=== PATIENT | female | born 1975 | race Caucasian/White ===

== ENCOUNTER 2019-03-18 20:25 | Emergency (ER) | payer OTHER ==
[2019-03-18 20:31] VITALS: BP 144/86
== END 2019-03-18 22:34 | disposition left against medical advice (07) ==
LOC: ED 20:25
DX: O03.9 Complete or unspecified spontaneous abortion without complication (principal); Z53.21 Procedure and treatment not carried out due to patient leaving prior to being seen by health care provider

== ENCOUNTER → 2019-03-19 15:54 | Day surgery (SDC) | payer OTHER ==
[~2019-03-19 15:54] MED LIST: Acetaminophen TAB* 325 MG PO PRN; DOXYcycline IV 200 MG in NS 250 mL *Pre-Op OBGYN IVPB ONE; Dexamethasone IV* 4 MG/ML 1 ML (4 MG) IV SLOW PU ONE; Dexamethasone IV* 4 MG/ML 1 ML (4 MG) ONE; DiMENhydriNATE IV* 50 MG/ML VIAL IV PUSH PRN; Famotidine IV* 10 MG/ML 2 ML (20 mg) IV SLOW PU ONE; Famotidine IV* 10 MG/ML 2 ML (20 mg) ONE; HYDROcodone/ACETAMIN 5-325 MG* 1 TAB PO PRN; KETAMINE HCL* 50 MG/ML 10 ML VIAL ONE; Ketorolac INJ* 30 MG/ML 1 ML VIAL IV PRN; Lidocaine 1% INJ* 10 MG/ML 30 ML SDV ONE; Lidocaine 2% PF * 5 ML VIAL ONE; Midazolam* 1 MG/ML 5 ML VIAL (5 MG) ONE; Naloxone* 0.4 MG/ML 1 ML VIAL IV PRN; Ondansetron INJ* 2 MG/ML VIAL ONE; Propofol* 500 MG/50 ML BTL ONE; fentaNYL* 50 MCG/ML 2 ML VIAL (100 MCG VIAL) IV PRN; fentaNYL* 50 MCG/ML 2 ML VIAL (100 MCG VIAL) ONE; oxyCODONE/Acetamin 5/325 MG* TAB PO PRN
[2019-03-19 20:12] VITALS: BP 116/83
--- NOTE | 2019-03-20 02:16 | OP ---
DATE OF OPERATION: 03/19/19 - [facility] DATE OF : 75 SURGEON: Wicho Jha MD ANESTHESIA: Monitored anesthesia care. PRE-OP DIAGNOSIS: An incomplete after a failed medically-induced termination of in the first trimester. POST-OP DIAGNOSIS: An incomplete after a failed medically-induced termination of in the first trimester. OPERATIVE PROCEDURE: Dilation and evacuation. ESTIMATED BLOOD LOSS: None. SPECIMEN SENT TO PATHOLOGY: Endometrial curettings. FLUIDS: She received 500 cc of IV crystalloid fluid. URINE OUTPUT: 220 cc of clear urine. FINDINGS: Exam under anesthesia revealed normal external genitalia. Cervix was noted to be about 1 cm dilated. The uterus was sounded to 9 cm and was in anteverted position and moderate amounts of products of conception were removed with the procedure and sent to Pathology. DESCRIPTION OF PROCEDURE: The patient was taken to the operating room where she was identified. She was placed on the operating room table where the patient was sedated and monitored anesthesia care obtained. She was then placed in a dorsal lithotomy position, prepped and draped in normal sterile fashion. Attention was then brought onto the patient's perineum where the bladder was catheterized with a straight catheter and drained of clear urine, after which a weighted speculum was then inserted into the patient's vagina. The cervix was identified, grasped with a single-tooth tenaculum, and was noted to be about a centimeter dilated with small amount of blood oozing out of the cervix. I then proceeded to sound the cervix and was noted to be 9 cm and in an anteverted position. I then introduced a 10-curved suction curette through the cervix up to the fundus of the uterus. A suction was then applied and a suction curettage was performed. After the suction curettage was deemed to have completed emptying the uterus, a sharp curettage was done to confirm this. Once the confirmation of the uterine cavity emptying was noted, I removed all the instruments from the patient's vagina. Sponge, lap, and needle counts were correct x2. The specimen was sent to pathology. The patient was taken to recovery room in stable condition. [id number]/[facility] #: [id number] MTDD
== END | disposition home or self-care (01) ==
LOC: OR 15:54
PROVIDERS: ATTEND Obstetrics & Gynecology
DX: O03.39 Incomplete spontaneous abortion with other complications (principal); O07.1 Delayed or excessive hemorrhage following failed attempted termination of pregnancy; Z3A.09 9 weeks gestation of pregnancy
CPT/HCPCS: 88305; J1100; J2250; J2405; J2704; J3010

== ENCOUNTER 2019-07-16 16:29 | Emergency (ER) | payer OTHER ==
[2019-07-16 17:29] LABS: ABS Eosinophils 0.1 10^3/ul (0-0.6); ABS Lymphocytes 1.8 10^3/ul (1.0-4.8); ABS Monocytes 0.5 10^3/ul (0-0.8); ABS Neutrophils 4.5 10^3/ul (1.5-7.7); Eosinophil % 1.8 %; Hematocrit 37 % (35-47); Hemoglobin 12.9 g/dL (12.0-16.0); Lymphocyte % 26.4 %; Mean Corpuscular HGB Conc 35 g/dL (31-36); Mean Corpuscular Hemoglobin 28 pg (27-31); Mean Corpuscular Volume 80 fL (80-97); Mean Platelet Volume 7.6 fL (7.4-10.4); Platelet Count 335 10^3/uL (150-450); Red Blood Count 4.61 10^6 /uL (3.70-4.87); Red Cell Distribution Width 22 % (10-15); White Blood Count 6.9 10^3/uL (3.5-10.8)
[2019-07-16 17:48] LABS: Albumin 4.7 g/dL (3.2-5.2); Albumin/Globulin Ratio 1.5 (1-3); BUN/Creatinine Ratio 15.1 (8-20); Calcium 9.6 mg/dL (8.6-10.3); EGFR African American 105.3 (>60); Globulin 3.1 g/dL (2-4); Potassium 3.3 mmol/L (3.5-5.0); Total Bilirubin 0.4 mg/dL (0.2-1.0); Total Protein 7.8 g/dL (6.4-8.9)
--- NOTE | 2019-07-16 18:58 | ED ---
GI/ HPI - HPI Summary HPI Summary: Patient with history of 10 weeks complains of new onset vaginal bleeding starting at 1 AM this morning, increasing to heavy meeting at noon. Patient evaluated by LEAD TECHNICIAN at 3 PM, diagnosed with suspected miscarriage due to open cervix. Sent to the ED for lab work and evaluation. Patient also complains of lightheadedness. Patient states she has been using 1 large pad per hour, passing some large clots. Intermittent lower abdominal cramping. Denies fever, cough, sore throat, CP, SOB, N/3/D, change in urine, change in BM. History of incomplete miscarriage 3 with subsequent D and E 3. LEAD TECHNICIAN is Dr. Jha. - History of Current Complaint Chief Complaint: EDVaginalBleeding Time Seen by Provider: 07/16/19 18:52 Stated Complaint: 10 WEEKS PREG BLEEDING Hx Obtained From: Patient, Family/Salon Customer Experience Specialist Onset/Duration: Started Hours Ago Timing: Intermittent, Lasting Hours Severity: Moderate Current Severity: Moderate Vaginal Bleeding Description: Brownish-Red Pain Intensity: 5 Location of Pain: RLQ, LLQ, Suprapubic Pain Characteristics: Cramping Associated Signs and Symptoms: Positive: Lightheadedness Aggravating Factor(s): Nothing Alleviating Factor(s): Nothing - Allergy/Home Medications Allergies/Adverse Reactions: Allergies Allergy/AdvReac Type Severity Reaction Status Date / Time No Known Allergies Allergy Verified 03/19/19 16:50 Home Medications: Home Medications Pnv No.95/Ferrous Fum/Folic AC [ and Iron] 1 tab PO DAILY 10/09/12 [ History Confirmed 07/16/19] PMH/Surg Hx/FS Hx/Imm Hx Endocrine/Hematology History: Reports: Hx Thyroid Disease - BENIGN NODULES, WATCHING Denies: Hx Diabetes Cardiovascular History: Denies: Hx Pacemaker/ICD Respiratory History: Denies: Hx Chronic Obstructive Pulmonary Disease (COPD) History: Denies: Hx Dialysis Sensory History: Denies: Hx Contacts or Glasses, Hx Hearing Aid Opthamlomology History: Denies: Hx Contacts or Glasses EENT History: Denies: Hx Deafness Neurological History: Denies: Hx Dementia Psychiatric History: Denies: Hx Panic Disorder - Surgical History Surgery Procedure, Year, and Place: 07/2013 D&C, [facility]; Hx Anesthesia Reactions: No Infectious Disease History: No Infectious Disease History: Denies: Traveled Outside the [place] in Last 30 Days - Family History Known Family History: Positive: Non-Contributory - Social History Alcohol Use: Rare Substance Use Type: Reports: None Smoking Status (MU): Never Smoked Tobacco Have You Smoked in the Last Year: No Review of Systems Constitutional: Negative Eyes: Negative ENT: Negative Cardiovascular: Negative Respiratory: Negative Positive: Abdominal Pain Genitourinary: Negative Musculoskeletal: Negative Skin: Negative Neurological/Mental Status: Negative Psychological: Normal All Other Systems Reviewed And Are Negative: Yes Physical Exam Triage Information Reviewed: Yes Vital Signs On Initial Exam: Initial Vitals Temp Pulse Resp BP Pulse Ox 98.7 F 95 18 136/108 100 07/16/19 16:32 07/16/19 16:32 07/16/19 16:32 07/16/19 16:32 07/16/19 16:32 Vital Signs Reviewed: Yes Appearance: Positive: Well-Appearing Skin: Positive: Warm Head/Face: Positive: Normal Head/Face Inspection Eyes: Positive: Normal Neck: Positive: Supple Respiratory/Lung Sounds: Positive: Clear to Auscultation Cardiovascular: Positive: Normal Abdomen Description: Positive: Nontender Musculoskeletal: Positive: Normal Neurological: Positive: Normal Psychiatric: Positive: Normal AVPU Assessment: Alert - [place] Coma Scale Best Eye Response: 4 - Spontaneous Best Motor Response: 6 - Obeys Commands Best Verbal Response: 5 - Oriented Coma Scale Total: 15 Procedures - Sedation Patient Received Moderate/Deep Sedation with Procedure: No Diagnostics - Vital Signs Vital Signs Temp Pulse Resp BP Pulse Ox 07/16/19 18:44 90 90/68 07/16/19 18:06 98.1 F 101 18 121/81 100 07/16/19 17:07 95 18 119/79 97 07/16/19 16:32 98.7 F 95 18 136/108 100 - Laboratory Lab Results: Lab Results 07/16/19 07/16/19 07/16/19 Range/Units 17:20 17:20 17:20 WBC 6.9 (3.5-10.8) 10^3/uL RBC 4.61 (3.70-4.87) 10^6 /uL Hgb 12.9 (12.0-16.0) g/dL Hct 37 (35-47) % MCV 80 (80-97) fL MCH 28 (27-31) pg MCHC 35 (31-36) g/dL RDW 22 H (10-15) % Plt Count 335 (150-450) 10^3/uL MPV 7.6 (7.4-10.4) fL Neut % (Auto) 64.2 % Lymph % (Auto) 26.4 % Peach % (Auto) 7.2 % Eos % (Auto) 1.8 % Baso % (Auto) 0.4 % Absolute Neuts (auto) 4.5 (1.5-7.7) 10^3/ul Absolute Lymphs (auto) 1.8 (1.0-4.8) 10^3/ul Absolute Monos (auto) 0.5 (0-0.8) 10^3/ul Absolute Eos (auto) 0.1 (0-0.6) 10^3/ul Absolute Basos (auto) 0.0 (0-0.2) 10^3/ul Absolute Nucleated RBC 0.0 10^3/ul Nucleated RBC % 0.0 Sodium 134 L (135-145) mmol/L Potassium 3.3 L (3.5-5.0) mmol/L Chloride 102 (101-111) mmol/L Carbon Dioxide 23 (22-32) mmol/L Anion Gap 9 (2-11) mmol/L BUN 11 (6-24) mg/dL Creatinine 0.73 (0.51-0.95) mg/dL Est GFR ( Amer) 105.3 (>60) Est GFR (Non-Af Amer) 87.0 (>60) BUN/Creatinine Ratio 15.1 (8-20) Glucose 93 (70-100) mg/dL Calcium 9.6 (8.6-10.3) mg/dL Total Bilirubin 0.40 (0.2-1.0) mg/dL AST 31 (13-39) U/L ALT 33 (7-52) U/L Alkaline Phosphatase 42 (34-104) U/L Total Protein 7.8 (6.4-8.9) g/dL Albumin 4.7 (3.2-5.2) g/dL Globulin 3.1 (2-4) g/dL Albumin/Globulin Ratio 1.5 (1-3) Beta HCG, Quant 3709.00 mIU/mL Blood Type O Positive Antibody Screen Negative Result Diagrams: 07/16/19 21:00 07/16/19 17:20 Lab Statement: Any lab studies that have been ordered have been reviewed, and results considered in the medical decision making process. GIGU Course/Dx - Course Course Of Treatment: Patient with history of 10 weeks complains of new onset vaginal bleeding starting at 1 AM this morning, increasing to heavy meeting at noon. Patient evaluated by LEAD TECHNICIAN at 3 PM, diagnosed with suspected miscarriage due to open cervix. Sent to the ED for lab work and evaluation. Patient also complains of lightheadedness. Patient states she has been using 1 large pad per hour, passing some large clots. Intermittent lower abdominal cramping. Denies fever, cough, sore throat, CP, SOB, N/3/D, change in urine, change in BM. History of incomplete miscarriage 3 with subsequent D and E 3. LEAD TECHNICIAN is Dr. Jha. Intermittently mildly tachycardic. Vital signs otherwise within normal limits. Labs unremarkable. Hemoglobin 12.9. Potassium 3.3. HCG 3709. Transvaginal ultrasound negative for IUP, negative for ectopic, positive for left ovarian cyst and small fibroid. Patient also evaluated by OB Dr. Lo with recommendation for discharge and misoprostol. - Diagnoses Provider Diagnoses: Incomplete miscarriage Discharge ED - Sign-Out/Discharge Documenting (check all that apply): Patient Departure - Discharge Plan Condition: Stable Disposition: HOME Patient Education Materials: Miscarriage (ED) Referrals: Tavo Montero MD [Primary Care Provider] - Additional Instructions: Follow up with LEAD TECHNICIAN Dr Jha. Return to the ED for any new or worsening symptoms. - Billing Disposition and Condition Condition: STABLE Disposition: Home
[2019-07-16] MEDS ORDERED: NS 0.9% 1000 ML** 1,000 ML IV ONE (19:38)
[2019-07-16] MEDS ORDERED: Misoprostol TAB* 200 MCG PO ONE (20:16)
[2019-07-16 21:43] LABS: Hematocrit 31 % (35-47); Hemoglobin 10.5 g/dL (12.0-16.0); Mean Corpuscular HGB Conc 34 g/dL (31-36); Mean Corpuscular Hemoglobin 27 pg (27-31); Mean Corpuscular Volume 81 fL (80-97); Mean Platelet Volume 8.1 fL (7.4-10.4); Platelet Count 263 10^3/uL (150-450); Red Blood Count 3.87 10^6 /uL (3.70-4.87); Red Cell Distribution Width 22 % (10-15); White Blood Count 9.9 10^3/uL (3.5-10.8)
[2019-07-16 22:24] LABS: ABS Lymphocytes 1.1 10^3/ul (1.0-4.8); ABS Monocytes 0.3 10^3/ul (0-0.8); ABS Neutrophils 8.5 10^3/ul (1.5-7.7); Eosinophil % 0.5 %
--- NOTE | 2019-07-16 22:33 | PN ---
Progress Note - Progress Note Date of Service: 07/16/19 - OBGYN CONSULT Note: OBGYN CONSULT Requested by ED PA for vaginal bleeding in the context of miscarriage S: Pt is a 43 y/o at 10w1d gestation by LMP who presented to the ED with heavy vaginal bleeding that began this AM and steadily increased throughout the day. She has a history of 2 term 's and two past miscarriages which both required surgical management with D&C. On arrival to the ED the appropriate labs were collected and a CYBER DEF[employer] INCIDENT RESPONDER TVUSN was performed. H/H and vitals were normal. Quant Hcg was ~3700. [employer] INCIDENT RESPONDER TVUSN exhibited a 11mm endometrial stripe and a suspected hemorrhagic corpus luteum. OBGYN notified to assess pt's bleeding and stability for discharge. Gen: nad, aaox3 CV: RRR Pulm: non-labored respirations Abd: soft, nd, nttp, no rebound, no guarding, no acute abdomen : Just prior to exam pt passed blood clot ~150cc on speculum placed in vagina another approximately 75 cc clot was removed, POC's were clearly visualized at the cervical OS and were carefully removed with Ring forceps. Bleeding was light after removal of POC's. AVSS, afebrile, hemodynamically stable Temp Pulse Resp BP Pulse Ox 98.1 F 89 18 107/77 97 07/16/19 18:06 07/16/19 20:32 07/16/19 18:06 07/16/19 20:30 07/16/19 20:32 Vital Signs - 24 hr 07/16/19 07/16/19 07/16/19 16:32 17:07 18:06 Temperature 98.7 F 98.1 F Pulse Rate 95 95 101 Respiratory 18 18 18 Rate Blood Pressure 136/108 119/79 121/81 (mmHg) O2 Sat by Pulse 100 97 100 Oximetry 07/16/19 07/16/19 07/16/19 18:44 19:13 19:19 Temperature Pulse Rate 90 102 108 Respiratory Rate Blood Pressure 90/68 131/92 (mmHg) O2 Sat by Pulse 100 100 Oximetry 07/16/19 07/16/19 20:30 20:32 Temperature Pulse Rate 91 89 Respiratory Rate Blood Pressure 107/77 (mmHg) O2 Sat by Pulse 98 97 Oximetry Abnormal Lab Results 03/03/2607/16/19 07/16/19 17:20 17:20 17:20 WBC 6.9 RBC 4.61 Hgb 12.9 Hct 37 MCV 80 MCH 28 MCHC 35 RDW 22 H Plt Count 335 MPV 7.6 Neut % (Auto) 64.2 Lymph % (Auto) 26.4 [place] % (Auto) 7.2 Eos % (Auto) 1.8 Baso % (Auto) 0.4 Absolute Neuts (auto) 4.5 Absolute Lymphs (auto) 1.8 Absolute Monos (auto) 0.5 Absolute Eos (auto) 0.1 Absolute Basos (auto) 0.0 Absolute Nucleated RBC 0.0 Nucleated RBC % 0.0 Sodium 134 L Potassium 3.3 L Chloride 102 Carbon Dioxide 23 Anion Gap 9 BUN 11 Creatinine 0.73 Est GFR ( Amer) 105.3 Est GFR (Non-Af Amer) 87.0 BUN/Creatinine Ratio 15.1 Glucose 93 Calcium 9.6 Total Bilirubin 0.40 AST 31 ALT 33 Alkaline Phosphatase 42 Total Protein 7.8 Albumin 4.7 Globulin 3.1 Albumin/Globulin Ratio 1.5 Beta HCG, Quant 3709.00 Blood Type O Positive Antibody Screen Negative 07/16/19 21:00 WBC 9.9 RBC 3.87 Hgb 10.5 L Hct 31 L MCV 81 MCH 27 MCHC 34 RDW 22 H Plt Count 263 MPV 8.1 Neut % (Auto) 85.4 Lymph % (Auto) 11.0 [place] % (Auto) 3.0 Eos % (Auto) 0.5 Baso % (Auto) 0.1 Absolute Neuts (auto) 8.5 H Absolute Lymphs (auto) 1.1 Absolute Monos (auto) 0.3 Absolute Eos (auto) 0.0 Absolute Basos (auto) 0.0 Absolute Nucleated RBC 0.0 Nucleated RBC % 0.0 Sodium Potassium Chloride Carbon Dioxide Anion Gap BUN Creatinine Est GFR ( Amer) Est GFR (Non-Af Amer) BUN/Creatinine Ratio Glucose Calcium Total Bilirubin AST ALT Alkaline Phosphatase Total Protein Albumin Globulin Albumin/Globulin Ratio Beta HCG, Quant Blood Type Antibody Screen A/P: 43 y/o with suspected Completed AB: - After exam, repeat CBC was collected and 1 Liter IVF given. - 600mcg of Cytotek was administered bucally - On re-exam at ~2.5 hour interval, pt reported feeling much better and reported significant improvement with bleeding to a light amount only, no further clots, no need to change pad for entire time interval. - H/H returned at 10.5/ (12.9/), this represents an expected change given amount of bleeding pt describes. - Pt stable to be discharge home with plan for f/u in the outpatient setting. Hemorrhage and anemia precautions carefully reviewed. Discussed control system manager system with patient and how she can reach the control system manager physician overnight in the event that she were to begin bleeding heavily again or become symptomatic. - OTC Ibuprofen for pain - OTC PNV+Fe and healthy diet and adequate hydration - Pt is RH+ there is no indication for Rhogam - Call private OBGYN office in AM to arrange for follow up DO CONTRERAS Dejesus
[2019-07-16 22:58] VITALS: BP 118/77
== END 2019-07-16 23:14 | disposition home or self-care (01) ==
LOC: ED 16:29
DX: O03.4 Incomplete spontaneous abortion without complication (principal); O46.91 Antepartum hemorrhage, unspecified, first trimester; E03.9 Hypothyroidism, unspecified; R42 Dizziness and giddiness; Z3A.10 10 weeks gestation of pregnancy
CPT/HCPCS: 36415; 76830; 80053; 84702; 85025; 86850; 86900; 86901; 88305; 99282; A9270-GY